=== PATIENT | female | born 1980 | race Caucasian/White ===

== ENCOUNTER → 2016-09-20 | Outpatient (CLI) | payer OTHER ==
[~2016-09-20] MED LIST: IBUP-232 PO; LABE200T2 PO; NIFE30TA8 PO; OXYC1TAB63 PO
== END ==
LOC: HPND 09:35
PROVIDERS: ATTEND Obstetrics & Gynecology
DX: O24.415 Gestational diabetes mellitus in pregnancy, controlled by oral hypoglycemic drugs (principal); O09.522 Supervision of elderly multigravida, second trimester; O10.912 Unspecified pre-existing hypertension complicating pregnancy, second trimester; O99.212 Obesity complicating pregnancy, second trimester; O34.42 Maternal care for other abnormalities of cervix, second trimester; Z68.42 Body mass index [BMI] 45.0-49.9, adult; E66.01 Morbid (severe) obesity due to excess calories
CPT/HCPCS: 76816

== ENCOUNTER 2016-11-29 15:16 | Inpatient (IN) | payer OTHER ==
--- NOTE | 2016-11-29 15:54 | PD ---
HPI Chief Complaint Elevated BP Date Seen: Nov 29, 2016 Travel History International Travel<30 Days: No Contact w/Intl Traveler<30Days: No Known Affected Area: No History of Present Illness HPI at 37w 6d presents with c/o elevated BP. Reports LANGE beginning this morning, has not tried anything for relief.Denies visual changes. Reports history of Pre Eclampsia with previous and C/S. History of CHTN on Procardia 30mg XL daily. Para: 1 : 2 History Past Medical History Narrative Medical CHTN Obstetric History Obstetric History FT C/S, Pre Eclampsia Past Surgical History Narrative Surgical C/S Physical Exam Narrative GENERAL: Well-nourished, well-developed patient. SKIN: Warm and dry. HEAD: Normocephalic and atraumatic. EYES: No scleral icterus. No injection or drainage. ENT: No nasal drainage noted. Mucous membranes pink. Airway patent. NECK: Supple, trachea midline. No JVD. CARDIOVASCULAR: Regular rate and rhythm without murmurs, gallops, or rubs. RESPIRATORY: Breath sounds equal bilaterally. No accessory muscle use. BREASTS: Bilateral exam showed no masses , no retractions, no nipple discharge. ABDOMEN/GI: Abdomen soft, non-tender, bowel sounds present, no rebound, no guarding Gravid to [-] weeks size Fundal Height: [-] GENITOURINARY: External Genitalia: intact and normal in appearance BUS glands: [-] Cervix: [-] Dilatation: [-] Effacement: [-] Station: [-] Presentation: [-] Membranes: [intact or ruptured] Uterine Contractions: [-] FHT's: Category: [-] Baseline: [-] Reactive: [-] Variability: [-] Decels: [-] EXTREMITIES: No cyanosis or edema. BACK: Nontender without obvious deformity. No CVA tenderness. NEUROLOGICAL: Awake and alert. Motor and sensory grossly within normal limits. Five out of 5 muscle strength in all muscle groups. Normal speech. MDM Interpretation(s) at 37w 6d with elevated BPs. Plan Will obtain Pre Eclampsia labs and serial BPs. Dr. Rosario assuming care of this patient. Orders for antihypertensives per Dr. Rosario. Diagnosis Diagnosis: Primary Impression: 37 weeks gestation of Additional Impression: Hypertension affecting in third trimester Cecilia Soto MD Nov 29, 2016 15:54
[2016-11-29 16:12] LABS: AUTOMATED NEUTROPHIL # 8.7 TH/MM3 (1.8-7.7); BASOPHIL % 0.3 % (0.0-2.0); EOSINOPHIL # 0.2 TH/MM3 (0-0.4); EOSINOPHIL % 1.6 % (0.0-4.0); HEMATOCRIT 35.7 % (35.0-46.0); HEMO FLAGS DIFF FINAL; LYMPH % 19.1 % (9.0-44.0); LYMPHOCYTE # 2.3 TH/MM3 (1.0-4.8); MEAN CELL VOLUME 80.3 FL (80.0-100.0); MEAN CORPUSCULAR HEMOGLOBIN 27.1 PG (27.0-34.0); MEAN CORPUSCULAR HGB CONC 33.7 % (32.0-36.0); MONO % 6.3 % (0.0-8.0); NEUT % 72.7 % (16.0-70.0); PLATELET COUNT 240 TH/MM3 (150-450); RED BLOOD COUNT 4.45 MIL/MM3 (4.00-5.30); RED CELL DISTRIBUTION WIDTH 14.3 % (11.6-17.2)
[2016-11-29 16:20] LABS: BACTERIA, URINE OCC /hpf; BLOOD, URINE NEG (NEG); COMMENT (UR) CULT NOT INDICATED; CULTURE IF INDICATED CULT NOT INDICATED; GLUCOSE,URINE NEG (NEG); KETONE, URINE NEG (NEG); NITRITE,URINE NEG (NEG); PH, URINE 6.5 (5.0-8.5); SQUAMOUS EPITHELIAL CELL URINE <1 /hpf (0-5); URINE COLOR LIGHT-YELLOW (YELLW/STRAW)
[2016-11-29 16:42] LABS: ALT (GPT) 24 U/L (10-53); ANION GAP 10 MEQ/L (5-15); AST (GOT) 13 U/L (15-37); BICARBONATE 22.1 MEQ/L (21.0-32.0); BLOOD UREA NITROGEN 17 MG/DL (7-18); CHLORIDE 107 MEQ/L (98-107); GLOMERULAR FILTRATION RATE 79 ML/MIN (>89); LDH SERUM 175 U/L (84-246); SODIUM (NA) 139 MEQ/L (136-145); URIC ACID 6.3 MG/DL (2.6-6.0)
[2016-11-29 16:43] LABS: ALKALINE PHOSPHATASE 96 U/L (45-117); TOTAL BILIRUBIN ADULT 0.2 MG/DL (0.2-1.0)
[2016-11-29 17:47] VITALS: BP 149/87; PULSE 69
[2016-11-29] MEDS ORDERED: CITRIC ACID-SODIUM CITRATE LIQ 30 ML UDC PO SCH (18:00)
[2016-11-29] MEDS ORDERED: LACTATED RINGER'S 1000 ML IV ONE (18:00)
[2016-11-29] MEDS ORDERED: ceFAZolin 2 GM PREMIX 50 ML IV SCH (18:00)
[2016-11-29] MEDS: LACTATED RINGER'S 1000 ML IV SCH (18:00)
[2016-11-29 19:37] VITALS: BP 158/85; PULSE 74
[2016-11-29 19:39] VITALS: BP 143/72; PULSE 72
[2016-11-29 19:42] VITALS: RESP 20; TEMP 98
[2016-11-29] MEDS ORDERED: glyBURIDE 2.5 MG TAB PO SCH (21:46)
[2016-11-29] MEDS ORDERED: PILL SPLITTER OTHER PRN (22:00)
[2016-11-29 23:04] VITALS: BP 159/91; PULSE 68
[2016-11-30] VITALS (23 sets, daily range): BP systolic 135–198; BP diastolic 72–102; PULSE 61–75; RESP 16–18; TEMP 97.4–98.1; O2SAT 98–99
[2016-11-30] MEDS ORDERED: NIFEdipine 30 MG SUSTAINED RELEASE TAB PO SCH ×2 (06:04→09:00)
[2016-11-30] MEDS: LACTATED RINGER'S 1000 ML IV SCH (06:26)
[2016-11-30] MEDS ORDERED: hydrALAZINE HCL 20 MG/ML VIAL ONE (07:10)
--- NOTE | 2016-11-30 07:20 | PD.OB.ANTE ---
Subjective Diagnosis: (1) Hypertension affecting in third trimester Diagnosis: Principal (2) 38 weeks gestation of (3) Gestational diabetes mellitus (GDM) affecting second (4) Elderly multigravida (5) Obese Interval History Pt admitted through L&D triage yesterday afternoon for c/o LANGE and elevated BP despite normal dose of Procardia XL 30mg at home. On admission pt's pressures were borderline severe, single dose of IV labetalol controlled. PIH labs were normal. Decision to observe patient overnight and proceed with scheduled in the morning unless symptoms or pressures worsened. No severe range pressures overnight and LANGE resolved until this morning, when pt reports return of LANGE and BPs now consistently 160s/100s. Will proceed with now. Antepartum ROS: Reports: New complaints (headache), movement normal, Denies: Loss of fluid, Vaginal bleeding, Contractions, Other Objective Vital Signs Vital Signs Date Time Temp Pulse Resp B/P Pulse Ox O2 Delivery O2 Flow Rate FiO2 11/30/16 06:46 73 163/92 11/30/16 06:38 66 171/93 11/30/16 06:31 75 157/102 11/30/16 05:08 67 154/83 11/30/16 05:00 98.1 18 11/30/16 00:10 98.0 18 11/30/16 00:09 67 155/87 11/29/16 23:04 68 159/91 11/29/16 19:42 98.0 20 11/29/16 19:39 72 143/72 11/29/16 19:37 158/85 11/29/16 19:37 74 11/29/16 17:47 69 149/87 Lab & Micro Results Test 11/29/16 11/29/16 15:53 16:34 White Blood Count 12.0 TH/MM3 Red Blood Count 4.45 MIL/MM3 Hemoglobin 12.0 GM/DL Hematocrit 35.7 % Mean Corpuscular Volume 80.3 FL Mean Corpuscular Hemoglobin 27.1 PG Mean Corpuscular Hemoglobin 33.7 % Concent Red Cell Distribution Width 14.3 % Platelet Count 240 TH/MM3 Mean Platelet Volume 8.8 FL Neutrophils (%) (Auto) 72.7 % Lymphocytes (%) (Auto) 19.1 % Monocytes (%) (Auto) 6.3 % Eosinophils (%) (Auto) 1.6 % Basophils (%) (Auto) 0.3 % Neutrophils # (Auto) 8.7 TH/MM3 Lymphocytes # (Auto) 2.3 TH/MM3 Monocytes # (Auto) 0.8 TH/MM3 Eosinophils # (Auto) 0.2 TH/MM3 Basophils # (Auto) 0.0 TH/MM3 CBC Comment DIFF FINAL Differential Comment Urine Color LIGHT-YELLOW Urine Turbidity CLEAR Urine pH 6.5 Urine Specific [place] 1.009 Urine Protein TRACE mg/dL Urine Glucose (UA) NEG mg/dL Urine Ketones NEG mg/dL Urine Occult Blood NEG Urine Nitrite NEG Urine Bilirubin NEG Urine Urobilinogen LESS THAN 2.0 MG/DL Urine Leukocyte Esterase TRACE Urine RBC LESS THAN 1 /hpf Urine WBC LESS THAN 1 /hpf Urine Squamous Epithelial <1 /hpf Cells Urine Bacteria OCC /hpf Microscopic Urinalysis Comment CULT NOT INDICATED Sodium Level 139 MEQ/L Potassium Level 4.0 MEQ/L Chloride Level 107 MEQ/L Carbon Dioxide Level 22.1 MEQ/L Anion Gap 10 MEQ/L Blood Urea Nitrogen 17 MG/DL Creatinine 0.82 MG/DL Estimat Glomerular Filtration 79 ML/MIN Rate Random Glucose 96 MG/DL Uric Acid 6.3 MG/DL Calcium Level 9.1 MG/DL Total Bilirubin 0.2 MG/DL Aspartate Amino Transf 13 U/L (AST/SGOT) Alanine Aminotransferase 24 U/L (ALT/SGPT) Alkaline Phosphatase 96 U/L Lactate Dehydrogenase 175 U/L Total Protein 6.7 GM/DL Albumin 2.5 GM/DL Blood Type A POSITIVE Antibody Screen NEGATIVE Blood Bank Comment Physical Exam GENERAL: Well-nourished, well-developed patient. Obese CARDIOVASCULAR: Regular rate and rhythm without murmurs, gallops, or rubs. RESPIRATORY: Breath sounds equal bilaterally. No accessory muscle use. ABDOMEN/GI: Abdomen soft, non-tender. Fundus: [-] GENITOURINARY: External Genitalia: deferred FHT's: Category: I EXTREMITIES: No cyanosis or edema, non-tender, without signs of DVT. Assessment and Plan Problem List: (1) Hypertension affecting in third trimester Status: Acute (2) 38 weeks gestation of Status: Acute (3) Elderly multigravida Status: Chronic (4) Gestational diabetes mellitus (GDM) affecting second Status: Acute (5) Obese Status: Chronic (6) Genital herpes affecting in third trimester Status: Acute Assessment and Plan 36 yo with EDC 12/14/16 admit for new headache and elevated BP in setting of CHTN in , for scheduled this AM due to multiple comorbidities in 1) h/o CD for repeat: r/b/a d/w pt, consents signed, performing at 38 wks due to CHTN, poorly controlled at term, GDM, obesity, AMA; declines BTL (wants Mirena) 2) CHTN: up until yesterday pt had been well controlled on oral Procardia XL 30mg daily, started having HAs yesterday, PIH labs wnl, will continue Procardia PP and titrate as necessary 3) GDM: controlled on daily glyburide 1.25mg at bedtime 4) obese: growth scans and biweekly testing with [facility] appropriate 5) advanced maternal age: anatomy scan wnl, cfdna neg, msafp neg 6) h/o genital HSV: prior to yesterday had had no outbreak x 7 years, felt tingling yesterday and increased Valtrex from 500mg to 1000mg daily; will notify peds team 7) status: male, vertex, Cat I tracing Nara Rosario MD Nov 30, 2016 07:20
[2016-11-30] MEDS ORDERED: OXYTOCIN 10 UNIT/ML AMP ONE (07:25)
[2016-11-30] MEDS ORDERED: DICLOFENAC SODIUM 37.5 MG/ML VIAL IV PUSH ONE (07:25)
[2016-11-30] MEDS ORDERED: EPIDURAL-DO NOT ADMINISTER ANTICOAGULANTS XX PRN (07:28)
[2016-11-30] MEDS ORDERED: EPIDURAL-DIPHENHYDRAMINE HCL 50 MG/ML VIAL IV PUSH PRN (07:28)
[2016-11-30] MEDS ORDERED: EPIDURAL-NO SYSTEMIC NARCOTICS XX PRN (07:28)
[2016-11-30] MEDS ORDERED: EPIDURAL-DIPHENHYDRAMINE HCL 50 MG CAP PO PRN (07:28)
[2016-11-30] MEDS ORDERED: EPIDURAL-NALOXONE HCL 0.4 MG/ML AMP IV PRN (07:28)
[2016-11-30] MEDS ORDERED: OXYTOCIN 30 UNITS-500ML PREMIX 500 ML IV ONE (08:30)
[2016-11-30] MEDS ORDERED: ZOLPIDEM TARTRATE 5 MG TAB PO PRN (08:30)
[2016-11-30] MEDS ORDERED: SODIUM CHLORIDE 0.9% FLUSH 10 ML FLUSH IV FLUSH PRN (08:30)
[2016-11-30] MEDS ORDERED: ONDANSETRON HCL 4 MG/2 ML VIAL IV PUSH PRN (08:30)
[2016-11-30] MEDS ORDERED: ACETAMINOPHEN 325 MG TAB PO PRN (08:30)
[2016-11-30] MEDS ORDERED: SIMETHICONE 80 MG CHEWABLE TAB PO PRN (08:30)
[2016-11-30] MEDS ORDERED: ONDANSETRON HCL 4 MG/2 ML VIAL ONE (08:31)
[2016-11-30] MEDS ORDERED: MORPHINE SULFATE PF 5 MG/10 ML VIAL ONE (08:31)
--- NOTE | 2016-11-30 08:39 | PD.OB.DELI ---
Procedure Note Section Procedure Pre Op Diagnosis: (1) Hypertension affecting in third trimester (2) 38 weeks gestation of (3) Gestational diabetes mellitus (GDM) affecting second (4) Obese (5) Elderly multigravida (6) Genital herpes affecting in third trimester (7) H/O section Post Op Diagnosis: (1) S/P repeat low transverse (2) Hypertension affecting in third trimester (3) 38 weeks gestation of (4) Gestational diabetes mellitus (GDM) affecting second (5) Elderly multigravida (6) Obese (7) Genital herpes affecting in third trimester Performed by Nara Rosario Procedure: Repeat Low Transverse Sec Indication for delivery: Maternal medical problems (CHTN with new severe features requiring IV antihypertensive overnight; GDM, obese, AMA, HSV outbreak) Informed consent obtained: For anesthesia, For procedure Confirmed correct: Patient, Procedure, Site, Time-out taken Anesthesia: Spinal Medication prior to procedure: As documented in eMAR Monitoring during procedure: Blood pressure monitoring, secured entrance monitor, Pulse oximetry Urinary catheter: Inserted using sterile technique, To dependent drainage, ml urine output (350) Sterile preparation: Duraprep, In usual fashion, With drapes to expose affected area Position: Supine with wedge to right side Operative Features Skin Incision: Pfannenstiel Uterine Incision: Low transverse w/knife / blunt ext Membranes Ruptured: Artificially, Amount of liquid (copious), Appearance of fluid (clear) Presentation: Compound (R hand presenting), Vertex Delivery of infant: Assisted (vacuum extraction) Infant: Male, Single One Minute : 9 Five Minute : 9 Weight: 7#7oz Status of infant: Viable, Cord blood, Nursery present Placenta delivered: Intact, Sent to pathology Medications: Antibiotics (standard preop Ancef 2g IV) Estimated blood loss: 600 mL Procedure tolerated: Well Maternal Condition: Stable Condition: Stable Procedure in detail see dictated op note for full details Nara Rosario MD Nov 30, 2016 08:39
[2016-11-30] MEDS ORDERED: MEPERIDINE HCL 25 MG/ML VIAL ONE (08:44)
[2016-11-30] MEDS ORDERED: ACETAMINOPHEN 1000 MG/100 ML VIAL IV ONE (09:00)
[2016-11-30] MEDS ORDERED: KETOROLAC TROMETHAMINE 60 MG/2 ML (IM) VIAL IM PRN (09:00)
[2016-11-30] MEDS: valACYclovir HCL 500 MG TAB PO SCH (09:40)
[2016-11-30] MEDS: NIFEdipine 30 MG SUSTAINED RELEASE TAB PO SCH (09:40)
[2016-11-30] MEDS: OXYTOCIN 30 UNITS-500ML PREMIX 500 ML IV PRN ×2 (10:25→16:11)
[2016-11-30] MEDS ORDERED: LACTATED RINGER'S 1000 ML INJ 1,000 ML IV SCH (13:28)
[2016-11-30] MEDS: DICLOFENAC SODIUM 37.5 MG/ML VIAL IV PUSH SCH (16:08)
[2016-11-30] MEDS: FAMOTIDINE 20 MG TAB PO SCH ×2 (21:00→21:39)
[2016-11-30] MEDS: DOCUSATE SODIUM 50 MG/SENNA 8.6 MG TAB PO SCH (21:39)
[2016-12-01] MEDS: DICLOFENAC SODIUM 37.5 MG/ML VIAL IV PUSH SCH (00:23)
[2016-12-01 05:31] LABS: BASOPHIL # 0.1 TH/MM3 (0-0.2); BASOPHIL % 0.5 % (0.0-2.0); EOSINOPHIL # 0.2 TH/MM3 (0-0.4); EOSINOPHIL % 1.3 % (0.0-4.0); HEMATOCRIT 37.4 % (35.0-46.0); HEMO FLAGS DIFF FINAL; LYMPH % 17.4 % (9.0-44.0); LYMPHOCYTE # 2.1 TH/MM3 (1.0-4.8); MEAN CORPUSCULAR HEMOGLOBIN 26.8 PG (27.0-34.0); MEAN CORPUSCULAR HGB CONC 33.1 % (32.0-36.0); MONO % 5.6 % (0.0-8.0); NEUT % 75.2 % (16.0-70.0); PLATELET COUNT 223 TH/MM3 (150-450); RED BLOOD COUNT 4.62 MIL/MM3 (4.00-5.30); RED CELL DISTRIBUTION WIDTH 14.5 % (11.6-17.2)
[2016-12-01 08:29] VITALS: BP 152/93; PULSE 69; RESP 18; TEMP 98
[2016-12-01] MEDS: NIFEdipine 30 MG SUSTAINED RELEASE TAB PO SCH (08:44)
[2016-12-01] MEDS: FAMOTIDINE 20 MG TAB PO SCH ×2 (09:00→21:54)
[2016-12-01] MEDS: valACYclovir HCL 500 MG TAB PO SCH (09:00)
[2016-12-01] MEDS: DOCUSATE SODIUM 50 MG/SENNA 8.6 MG TAB PO SCH ×2 (09:00→16:57)
--- NOTE | 2016-12-01 10:34 | HHI.OB ---
Subjective Post Operative Day: 1 Remarks doing well no LANGE, N, V knows her BP up still with procardia Objective Vitals/I&O Vital Signs Date Time Temp Pulse Resp B/P Pulse Ox O2 Delivery O2 Flow Rate FiO2 12/01/16 08:29 98.0 69 18 152/93 11/30/16 18:59 18 11/30/16 17:50 16 11/30/16 16:40 16 11/30/16 16:00 16 11/30/16 15:00 64 18 151/84 11/30/16 15:00 97.6 11/30/16 13:30 16 11/30/16 12:50 18 11/30/16 11:10 18 11/30/16 11:10 159/96 11/30/16 11:10 67 Result Diagram: 12/01/16 0520 11/29/16 1553 Objective Remarks GENERAL: Well-nourished, well-developed patient. CARDIOVASCULAR: Regular rate and rhythm without murmurs, gallops, or rubs. RESPIRATORY: Breath sounds equal bilaterally. No accessory muscle use. ABDOMEN/GI: Abdomen soft, non-tender, bowel sounds present. bandage dry Clean, dry and intact. Fundus: Firm, non-tender at umbilicus. GENITOURINARY: Light to moderate bleeding. EXTREMITIES: No cyanosis or edema, non-tender, without signs of DVT. Medications and IVs Current Medications Medications (Trade) Dose Ordered Sig/Angel Route Start Time Stop Time Status Last Admin (Lr 1000 ml Inj) 1,000 ml @ 150 mls/hr Q6H40M IV 11/29/16 18:00 11/30/16 06:26 (Pill Splitter) 1 ea UNSCH PRN OTHER 11/29/16 22:00 (Procardia Xl) 30 mg DAILY PO 11/30/16 09:00 12/01/16 08:44 (NS Flush) 2 ml BID IV FLUSH 11/30/16 09:00 (NS Flush) 2 ml UNSCH PRN IV FLUSH 11/30/16 08:30 (Mylicon Chew) 80 mg QID PRN PO 11/30/16 08:30 (Tylenol) 650 mg Q6H PRN PO 11/30/16 08:30 (Motrin) 600 mg Q6H PRN PO 11/30/16 08:30 (Percocet 5-325 Mg) 1 tab Q4H PRN PO 11/30/16 08:30 (Percocet 5-325 Mg) 2 tab Q4H PRN PO 11/30/16 08:30 (Lillie-Colace) 2 tab Q12H PO 11/30/16 21:00 11/30/16 21:39 (Ambien) 5 mg HS PRN PO 11/30/16 08:30 (M-M-R Ii Inj) 0.5 ml ONCE ONCE SQ 12/01/16 16:00 12/01/16 16:01 (Boostrix Inj) 0.5 ml ONCE ONCE IM 12/01/16 16:00 12/01/16 16:01 (Zofran Inj) 4 mg Q6H PRN IV PUSH 11/30/16 08:30 11/30/16 16:07 (Valtrex) 1,000 mg DAILY PO 11/30/16 09:00 12/01/16 09:00 (Pepcid) 20 mg BID PO 11/30/16 09:00 12/01/16 09:00 Assessment/Plan Problem List: (1) Hypertension affecting in third trimester (2) 38 weeks gestation of (3) Elderly multigravida (4) Gestational diabetes mellitus (GDM) affecting second (5) Obese (6) Genital herpes affecting in third trimester Assessment and Plan doing well POD 1 BP still mildly up will add labetolol working on nursing advance anticipate discharge pod3 Jennifer Hardin MD Dec 01, 2016 10:34
[2016-12-01] MEDS: IBUPROFEN 600 MG TAB PO PRN ×2 (13:36→20:12)
[2016-12-01] MEDS: oxyCODONE/ACETAMINOPHEN 5 MG/325 MG TAB PO PRN ×2 (13:37→20:13)
[2016-12-01 14:45] VITALS: BP 130/86
[2016-12-01 14:46] VITALS: PULSE 80; RESP 20; TEMP 98.1
[2016-12-01] MEDS ORDERED: DIPHTH/TETANUS/ACEL PERTUSSIS (BOOSTER) 0.5 ML VIAL/PFS IM ONE (16:00)
[2016-12-01] MEDS ORDERED: MEASLES, MUMPS, RUBELLA VACCINE 0.5 ML VIAL SQ ONE (16:00)
[2016-12-01] MEDS ORDERED: LABETALOL HCL 100 MG TAB PO SCH (21:00)
[2016-12-01 21:40] VITALS: BP 131/84; PULSE 74; RESP 20; TEMP 98.3
[2016-12-02] MEDS: oxyCODONE/ACETAMINOPHEN 5 MG/325 MG TAB PO PRN ×4 (00:52→21:33)
[2016-12-02 06:00] VITALS: BP 152/89
[2016-12-02] MEDS: IBUPROFEN 600 MG TAB PO PRN ×3 (06:00→21:32)
--- NOTE | 2016-12-02 07:52 | HHI.OB ---
Subjective Post Operative Day: 2 Remarks Has some pain this am BP up despite increase in meds minor latching issues Objective Vitals/I&O Vital Signs Date Time Temp Pulse Resp B/P Pulse Ox O2 Delivery O2 Flow Rate FiO2 12/02/16 06:00 152/89 12/01/16 21:40 98.3 74 20 131/84 12/01/16 14:46 98.1 80 20 12/01/16 14:45 130/86 12/01/16 08:29 98.0 69 18 152/93 Result Diagram: 12/01/16 0520 11/29/16 1553 Objective Remarks GENERAL: Well-nourished, well-developed patient. CARDIOVASCULAR: Regular rate and rhythm without murmurs, gallops, or rubs. RESPIRATORY: Breath sounds equal bilaterally. No accessory muscle use. ABDOMEN/GI: Abdomen soft, non-tender, bowel sounds present. bandage dry Clean, dry and intact. Fundus: Firm, non-tender at umbilicus. GENITOURINARY: Light to moderate bleeding. EXTREMITIES: No cyanosis or edema, non-tender, without signs of DVT. Medications and IVs Current Medications Medications (Trade) Dose Ordered Sig/Angel Route Start Time Stop Time Status Last Admin (Lr 1000 ml Inj) 1,000 ml @ 150 mls/hr Q6H40M IV 11/29/16 18:00 11/30/16 06:26 (Pill Splitter) 1 ea UNSCH PRN OTHER 11/29/16 22:00 (Procardia Xl) 30 mg DAILY PO 11/30/16 09:00 12/01/16 08:44 (NS Flush) 2 ml BID IV FLUSH 11/30/16 09:00 (NS Flush) 2 ml UNSCH PRN IV FLUSH 11/30/16 08:30 (Mylicon Chew) 80 mg QID PRN PO 11/30/16 08:30 (Tylenol) 650 mg Q6H PRN PO 11/30/16 08:30 (Motrin) 600 mg Q6H PRN PO 11/30/16 08:30 12/02/16 06:00 (Percocet 5-325 Mg) 1 tab Q4H PRN PO 11/30/16 08:30 (Percocet 5-325 Mg) 2 tab Q4H PRN PO 11/30/16 08:30 12/02/16 06:00 (Lillie-Colace) 2 tab Q12H PO 11/30/16 21:00 12/01/16 16:57 (Ambien) 5 mg HS PRN PO 11/30/16 08:30 (Zofran Inj) 4 mg Q6H PRN IV PUSH 11/30/16 08:30 11/30/16 16:07 (Valtrex) 1,000 mg DAILY PO 11/30/16 09:00 12/01/16 09:00 (Pepcid) 20 mg BID PO 11/30/16 09:00 12/01/16 21:54 (Trandate) 100 mg Q12HR PO 12/01/16 21:00 12/01/16 21:54 Assessment/Plan Problem List: (1) Hypertension affecting in third trimester (2) 38 weeks gestation of (3) Elderly multigravida (4) Gestational diabetes mellitus (GDM) affecting second (5) Obese (6) Genital herpes affecting in third trimester Assessment and Plan doing well POD 2 Will increase labetolol working on nursing advance anticipate discharge pod3 Jennifer Hardin MD Dec 02, 2016 07:52
[2016-12-02] MEDS: LABETALOL HCL 200 MG TAB PO SCH ×2 (09:00→21:32)
[2016-12-02] MEDS: NIFEdipine 30 MG SUSTAINED RELEASE TAB PO SCH (09:00)
[2016-12-02] MEDS: FAMOTIDINE 20 MG TAB PO SCH ×2 (09:00→21:32)
[2016-12-02] MEDS: valACYclovir HCL 500 MG TAB PO SCH (09:00)
[2016-12-02] MEDS: DOCUSATE SODIUM 50 MG/SENNA 8.6 MG TAB PO SCH ×2 (09:00→21:32)
[2016-12-02 09:27] VITALS: BP 160/90; PULSE 82; RESP 18; TEMP 98.1
[2016-12-02] MEDS ORDERED: BISACODYL 10 MG SUPP RECTAL ONE (12:00)
[2016-12-02] MEDS: LACTATED RINGER'S 1000 ML IV SCH (19:20)
[2016-12-02 19:34] VITALS: BP 136/83; PULSE 75; RESP 18
[2016-12-02 19:35] VITALS: TEMP 98.6
[2016-12-02] MEDS: SODIUM CHLORIDE 0.9% FLUSH 10 ML FLUSH IV FLUSH SCH (21:00)
[2016-12-03] MEDS: oxyCODONE/ACETAMINOPHEN 5 MG/325 MG TAB PO PRN ×3 (04:37→14:35)
[2016-12-03] MEDS: IBUPROFEN 600 MG TAB PO PRN ×2 (04:37→14:35)
--- NOTE | 2016-12-03 07:37 | HHI.OB ---
Subjective Post Operative Day: 3 Remarks no complaints, breast and bottlefeeding Objective Vitals/I&O Vital Signs Date Time Temp Pulse Resp B/P Pulse Ox O2 Delivery O2 Flow Rate FiO2 12/02/16 22:32 18 12/02/16 22:32 18 12/02/16 19:35 98.6 12/02/16 19:34 75 18 136/83 12/02/16 09:27 98.1 82 18 160/90 Result Diagram: 12/01/16 0520 11/29/16 1553 Objective Remarks GENERAL: Well-nourished, well-developed patient. CARDIOVASCULAR: Regular rate and rhythm without murmurs, gallops, or rubs. RESPIRATORY: Breath sounds equal bilaterally. No accessory muscle use. ABDOMEN/GI: Abdomen soft, non-tender, bowel sounds present. incision dry Clean, dry and intact. Fundus: Firm, non-tender at umbilicus. GENITOURINARY: Light to moderate bleeding. EXTREMITIES: No cyanosis or edema, non-tender, without signs of DVT. Medications and IVs Current Medications Medications (Trade) Dose Ordered Sig/Angel Route Start Time Stop Time Status Last Admin (Lr 1000 ml Inj) 1,000 ml @ 150 mls/hr Q6H40M IV 11/29/16 18:00 11/30/16 06:26 (Pill Splitter) 1 ea UNSCH PRN OTHER 11/29/16 22:00 (Procardia Xl) 30 mg DAILY PO 11/30/16 09:00 12/02/16 09:00 (NS Flush) 2 ml BID IV FLUSH 11/30/16 09:00 (NS Flush) 2 ml UNSCH PRN IV FLUSH 11/30/16 08:30 (Mylicon Chew) 80 mg QID PRN PO 11/30/16 08:30 (Tylenol) 650 mg Q6H PRN PO 11/30/16 08:30 (Motrin) 600 mg Q6H PRN PO 11/30/16 08:30 12/03/16 04:37 (Percocet 5-325 Mg) 1 tab Q4H PRN PO 11/30/16 08:30 12/03/16 04:37 (Percocet 5-325 Mg) 2 tab Q4H PRN PO 11/30/16 08:30 12/02/16 06:00 (Lillie-Colace) 2 tab Q12H PO 11/30/16 21:00 12/02/16 21:32 (Ambien) 5 mg HS PRN PO 11/30/16 08:30 (Zofran Inj) 4 mg Q6H PRN IV PUSH 11/30/16 08:30 11/30/16 16:07 (Valtrex) 1,000 mg DAILY PO 11/30/16 09:00 12/02/16 09:00 (Pepcid) 20 mg BID PO 11/30/16 09:00 12/02/16 21:32 (Trandate) 200 mg Q12HR PO 12/02/16 09:00 12/02/16 21:32 Assessment/Plan Problem List: (1) Hypertension affecting in third trimester (2) 38 weeks gestation of (3) Elderly multigravida (4) Gestational diabetes mellitus (GDM) affecting second (5) Obese (6) Genital herpes affecting in third trimester Assessment and Plan doing well POD 3 on labetolol and procardia working on nursing advance anticipate discharge today Discharge Planning routine Attending Attestation pt seen by Fe Angel MD Dec 03, 2016 07:37
[2016-12-03 07:40] VITALS: BP 152/87; PULSE 107; RESP 22; TEMP 98.4
[2016-12-03] MEDS ORDERED: LABE200T2 PO (07:40)
[2016-12-03] MEDS ORDERED: NIFE30TA8 PO (07:40)
[2016-12-03] MEDS ORDERED: IBUP-232 PO (07:40)
[2016-12-03] MEDS ORDERED: OXYC1TAB63 PO (07:40)
--- NOTE | 2016-12-03 07:40 | HHI.DCPOC ---
Discharge Care Plan Your Health Problems Are: Pelvic pain Report Symptoms to Your Doctor -Temperate above 100.5 degrees -Redness, of incision or excessive or foul smelling drainage -Unusual pain or calf pain -Increased vaginal bleeding -Painful or difficulty urinating -Feelings of extreme sadness or anxiety after 2 weeks Goals to Promote Your Health * To prevent worsening of your condition and complications * To maintain your health at the optimal level Directions to Meet Your Goals Take your medications as prescribed Follow your dietary instruction Follow activity as directed Ensure plenty of rest for recovery Drink fluids for hydration Keep your appointments as scheduled Take your immunizations and boosters as scheduled If your symptoms worsen call your PCP, if no PCP go to Urgent Care Center or Emergency Room Smoking is Dangerous to Your Health. Avoid second hand smoke Call the 24-hour crisis hotline for domestic abuse at Fe Vincent MD Dec 03, 2016 07:40
[2016-12-03] MEDS: SODIUM CHLORIDE 0.9% FLUSH 10 ML FLUSH IV FLUSH SCH (09:00)
[2016-12-03] MEDS: NIFEdipine 30 MG SUSTAINED RELEASE TAB PO SCH (09:22)
[2016-12-03] MEDS: valACYclovir HCL 500 MG TAB PO SCH (09:22)
[2016-12-03] MEDS: LABETALOL HCL 200 MG TAB PO SCH (09:22)
[2016-12-03] MEDS: DOCUSATE SODIUM 50 MG/SENNA 8.6 MG TAB PO SCH (09:23)
[2016-12-03] MEDS: FAMOTIDINE 20 MG TAB PO SCH (09:23)
[2016-12-03] MEDS: LACTATED RINGER'S 1000 ML IV SCH (15:20)
--- NOTE | 2016-12-04 09:13 | MP ---
cc: ANIL DAVID DATE OF SURGERY 11/30/2016 PREOPERATIVE DIAGNOSES 1. Intrauterine at 38 weeks and 0 days. 2. Chronic hypertension with severe symptoms 3. Gestational diabetes controlled on oral hypoglycemics. 4. Advanced maternal age. 5. Obesity. 6. Active herpes outbreak. 7. History of x 1. POSTOPERATIVE DIAGNOSES 1. Intrauterine at 38 weeks and 0 days. 2. Chronic hypertension with severe symptoms 3. Gestational diabetes controlled on oral hypoglycemics. 4. Advanced maternal age. 5. Obesity. 6. Active herpes outbreak. 7. History of x 1. 8. Postop day #0. INDICATIONS Mague Islas is a 36-year-old 2. now para 2-0-0-2, who had been seen and evaluated throughout her with multiple complications including chronic hypertension, gestational diabetes, obesity, advanced maternal age as well as history of delivery x 1. The patient had desired a repeat at term and had worsening of her hypertensive symptoms at 37 weeks and 6 days despite her normal dosing of oral Procardia 30 mg daily. Her pressures were not severe and preeclampsia labs were within normal limits so the patient was observed overnight on November 29 and surgery was performed as scheduled the morning of November 30. Coincidentally patient also began to complain of prodrome symptoms for HSV, she had not mentioned this history prior to November 29, 2016 so she was not on prophylactic antivirals. Previous outbreak over 7 years ago. PROCEDURE PERFORMED Repeat low transverse delivery with vacuum extraction. SURGEON Anil David MD TYPE OF ANESTHESIA Spinal. COMPLICATIONS None. COUNTS Sponge, lap, instrument and needle counts are correct x 2 at the conclusion of the procedure. ESTIMATED BLOOD LOSS 600 mL. IV FLUID REPLACEMENT 2300 mL. URINE OUTPUT 350 mL of clear urine draining in the Roth bag at the end of the procedure. INTRAOPERATIVE FINDINGS 1. A vigorous viable male in vertex presentation with a compound right hand as the presenting part. This was moved out of the way for delivery. 2. Amniotic fluid was copious and clear. 3. Apgars were 9 and 9. 4. weight was 7 pounds, 7 ounces. 5. Normal uterus, bilateral fallopian tubes and ovaries. 6. Minimal scar tissue on entry into the abdominal cavity. SPECIMEN Placenta and cord blood gas. PROCEDURE IN DETAIL After reviewing the informed consent, the patient was taken to the operating suite where a time-out was performed to identify the patient, planned procedure and any known allergies to drugs or drug products. The patient was placed sitting up on the operative table and spinal anesthesia was administered without difficulty and found to be adequate. The patient was then laid back in dorsal supine position with a bump under her right side and abdomen and perineum were prepped and draped in normal sterile fashion. Roth catheter was placed using sterile technique. Pfannenstiel type skin incision was made with a scalpel, carried down to the underlying layer of fascia with the Bovie. The fascia was incised in the midline and incision was extended laterally using sharp dissection with Abraham scissors. Superior aspect of the fascial incision was grasped with Tristian clamps and rectus muscles were dissected off sharply. Kochers were then moved to the inferior edge of the fascia and again rectus muscles are dissected off sharply with Abraham scissors. The rectus muscles were in the midline. The peritoneum was identified and entered bluntly with the surgeon's index finger. The incision was extended superiorly and inferiorly with good visualization of intraabdominal contents. Bladder blade was placed. A bladder flap was made using pickups and Metzenbaum scissors. Bladder blade was then replaced. The scalpel was used to make a low transverse uterine incision. This was extended bluntly. The amniotic sac was ruptured with copious clear fluid encountered. The 's head was somewhat floating and ballottable initially. The infant's head was able to be grasped and presenting part of hand was encountered. This was reduced. Attempt to flex the infant's head out through the incision was initially unsuccessful due to the copious amount of amniotic fluid and mother's obesity making it difficult to give appropriate fundal pressure, so vacuum extraction was successfully used with one pull and no pop-offs. The infant was then delivered using standard maneuvers, was immediately crying upon delivery. Nose and mouth were suctioned with bulb suction. Delayed cord clamping of 45 seconds was performed as requested. The cord was then doubly clamped and cut and the infant was handed off to the nursery staff. Cord blood sample was taken. Placenta was delivered spontaneously with gentle fundal massage and cord traction. The uterus was then exteriorized and cleared of all clots and debris with sterile moist lap sponges and the hysterotomy was repaired in a double layer, first in a running locked layer with #1 chromic, then in an imbricating layer. Excellent hemostasis was noted. Irrigation with suction of the pelvis was performed. The uterus was returned to the abdomen. Additional irrigation was performed and excellent hemostasis was noted. The peritoneum was closed in a running layer with 2-0 chromic. The fascia was closed in a running layer with #1 Vicryl. The subcutaneous tissue was irrigated copiously with warm sterile saline and hemostasis was ensured with the Bovie. A series of interrupted sutures using 2-0 chromic was used to close the subcutaneous space and 4-0 Monocryl in subcuticular fashion was used to close the skin. The skin was cleaned and dried and a pressure dressing was placed. The procedure was concluded at this point. The patient tolerated the procedure well, without complication. DISPOSITION The patient and are resting in the Post-Anesthesia Care Unit. The is nursery status. The patient's estimated length of stay is three postoperative days. MD JEMIMA Dale/KANIKA /8:28 AM /8:57 AM [facility]
== END 2016-12-03 16:21 | disposition home or self-care (01) | DRG 765 ==
LOC: HOBED 15:16 → H2EA 17:00 → H1EA 11-30 10:10
PROVIDERS: ADMIT Obstetrics & Gynecology; ATTEND Obstetrics & Gynecology
PROC: 10D00Z1 Extraction of Products of Conception, Low, Open Approach (ICD-10-PCS; principal; 2016-11-30)
DX: O34.211 Maternal care for low transverse scar from previous cesarean delivery (principal); O10.92 Unspecified pre-existing hypertension complicating childbirth; E66.9 Obesity, unspecified; A60.00 Herpesviral infection of urogenital system, unspecified; O24.425 Gestational diabetes mellitus in childbirth, controlled by oral hypoglycemic drugs; O99.214 Obesity complicating childbirth; Z37.0 Single live birth; Z3A.38 38 weeks gestation of pregnancy
CPT/HCPCS: 76818; 76820; 80053; 81001; 83615; 84550; 85025; 86850; 86900; 86901; 88307; 90715; 96361; 96374; J0360; J0690; J1130; J2175; J2274; J2405; J2590; J7120